=== PATIENT | female | born 2000 | race Caucasian/White ===

== ENCOUNTER 2025-03-15 19:27 | Emergency (ER) | payer OTHER, SELFPAY ==
[2025-03-15 19:44] VITALS: BP 102/70; PULSE 86; TEMP 36.4; O2SAT 100; BMI 20.7
--- NOTE | 2025-03-15 20:42 | CT_ITS ---
The [address] [address] Patient Name: TORIN AUGUSTE MRN: [id number] date: 2000 Sex: F Assigned Patient Location: ED.MAIN Current Patient Location: Accession/Order Number: [id number] Exam Date: 03/15/2025 22:13 Report Date: 03/15/2025 22:30 At the request of: IVAN MCCORD MD Procedure: CT abdomen pelvis w con CT Abdomen and Pelvis withcontrast TECHNIQUE: Axial imaging with 2-D reconstruction.100 cc of Omnipaque 300. The CT exam was performed using one or more the following dose reduction techniques: Automated exposure control, adjustment of the MA and/or Kv according to patient size, or use of the iterative reconstruction technique. COMPARISON: None History: Acute pelvic pain LIMITATIONS: None LOWER THORAX Unremarkable LIVER: Small left hepatic cyst. GALLBLADDER: No gallbladder abnormality identified. BILE DUCTS: No dilatation SPLEEN: Unremarkable PANCREAS: Unremarkable ADRENAL GLANDS: Unremarkable KIDNEYS:Unremarkable AORTA: No abdominal aortic aneurysm identified. RETROPERITONEUM: No significant retroperitoneal abnormalities identified. MESENTERY:Unremarkable STOMACH:Unremarkable SMALL BOWEL: The small bowel loops are nondistended. APPENDIX: The appendix is normal. COLON: Unremarkable URINARY BLADDER: Urinary bladder is unremarkable. REPRODUCTIVE SYSTEM: Anteverted uterus. No adnexal mass. PNEUMOPERITONEUM: None PERITONEAL FLUID:None BONY STRUCTURES: Unremarkable ABDOMINAL WALL: Unremarkable CT/CT abdomen pelvis w con IMPRESSION: No acute findings. Anteverted uterus. Impression dictated by: Ruslan Mcrae M.D. 03/15/2025 10:30 PM Dictation Location: [employer] Electronically authenticated by: [id number] Y Date: 03/15/2025 22:30
--- NOTE | 2025-03-15 20:49 | ED.SKABFB1 ---
HPI - Skin/Abscess/Foreign Bdy General Chief complaint: Urogenital-Female Stated complaint: NAUSEOUS/ PROBLEM IN VAGINAL AREA Time Seen by Provider: 03/15/25 19:32 Source: family Mode of arrival: walk-in History of Present Illness HPI narrative: This 24-year-old female is brought to the emergency department by her and mother. For the past 1 to 2 days the patient has been complaining of pain in her vaginal area. She states that she now cannot have a bowel movement. She is passing gas to a certain extent. She has scheduled an appointment with an [employer] [employer] but earlier today had sudden onset of a severe headache and abdominal pain. They state that she had a fever at home. She is afebrile here. She is nauseated but has not vomited in the emergency department. She has had 2 vaginal deliveries. She denies any urinary symptoms. She does not have any flank pain. She states that despite eating normally she has gone from a size medium to an extra small over the past 3 to 4 months. Related Data Allergies Allergy/AdvReac Type Severity Reaction Status Date / Time No Known Drug Allergies Allergy Verified 03/15/25 19:44 Review of Systems ROS Status of ROS 10 or more systems reviewed and unremarkable except as noted in history and below PFSH PFSH Social History Little interest or pleasure in doing things: not at all Feeling down, depressed, or hopeless: not at all Exam Narrative Exam Narrative: Vital signs and Nursing Notes reviewed: Patient is afebrile with normal pulse, blood pressure is soft at 102/70, she is not hypoxic with pulse ox of 100% on room air General: Awake, alert, oriented, nontoxic but uncomfortable appearing female lying on her left side in a position, no respiratory distress HEENT: Normocephalic atraumatic, mucous membranes are moist and pink, eyes are clear, normal conjunctiva, vision is grossly intact Neck: Supple, no meningeal signs, no anterior or posterior cervical lymphadenopathy Chest: Lungs are clear to auscultation with good air entry, there is no wheezing rhonchi or rales appreciated no accessory muscle use, patient is speaking in complete sentences-no chest wall tenderness to palpation CVS: Regular rate and rhythm S1-S2, no murmurs rubs or gallops, pulses are brisk and equal bilaterally ABD: Soft, nondistended, nontender, no rebound guarding or rigidity, bowel sounds are normal, no pulsatile masses appreciated : External visualization of the vagina and rectum appears normal-speculum exam performed with nurse irrigation laborer, there is tenderness at the anterior portion of the vagina with no appreciable cyst, mass or other notable abnormality, small amount of clear to white discharge noted, rectal exam also performed, it was tender without any appreciable masses. There was no appreciable mass between the rectum and the vagina. No hemorrhoids noted. Extremities: Moving all extremities, no lower extremity tenderness or swelling noted, negative Homans' sign, pulses are brisk and equal bilaterally Skin: Normal in appearance without rash,pallor, petechiae or purpura Neuro: No focal deficits Constitutional Vital Signs, click to edit/add: Last Vital Signs Temp 97.5 F L 03/15/25 19:44 Pulse 86 03/15/25 19:44 Resp 18 03/15/25 19:44 BP 102/70 03/15/25 19:44 Pulse Ox 100 03/15/25 19:44 O2 Del Method Room Air 03/15/25 19:44 Course Vital Signs Vital signs: Vital Signs Temperature 97.5 F L 03/15/25 19:44 Pulse Rate 86 03/15/25 19:44 Respiratory Rate 18 03/15/25 19:44 Blood Pressure 102/70 03/15/25 19:44 Pulse Oximetry 100 03/15/25 19:44 Oxygen Delivery Method Room Air 03/15/25 19:44 Temperature 97.5 F L 03/15/25 19:44 Pulse Rate 86 03/15/25 19:44 Respiratory Rate 18 03/15/25 19:44 Blood Pressure 102/70 03/15/25 19:44 Pulse Oximetry 100 03/15/25 19:44 Oxygen Delivery Method Room Air 03/15/25 19:44 MDM - Skin/Abscess/Foreign Bdy MDM Narrative Medical decision making narrative: This 24-year-old female presents for evaluation of lower abdominal/rectal/pelvic pain for the past 1 to 2 weeks but has been getting increasingly more severe. Patient states that she recently had her period and had to assist herself to bleed because there was something in the way like a cyst in her vagina. She also complains of weight loss and inability to have a bowel movement. She has scheduled to see outpatient [facility] [employer] in the near future but today the pain became more severe. She states she had a fever and developed a headache. Upon arrival she was lying in a position on her left side. Her vital signs are stable. She was tender in her lower abdomen. A pelvic and rectal exam were performed by myself with a nurse as irrigation laborer and I did not find any acute abnormalities. There was a small amount of clear to white discharge that appeared physiologic. The patient states she does not have any concerns for STDs. Her test was normal. An IV was placed and she was medicated with IV morphine, Zofran and fluids as well as Toradol for her headache. On reevaluation she is feeling better. She has a normal white count and stable hemoglobin. Electrolytes are normal. An ultrasound of the pelvis as well as a CT scan of the abdomen pelvis was ordered to rule out acute abnormalities. There was no acute abnormalities noticed on the ultrasound or the CT scan. The results of the studies were discussed with the patient and her mother then admits to me that she had been seen at [facility] multiple times for the same pelvic pain and they could never find anything wrong with her. She came here because they thought we would be more thorough. I explained to her that I have done was much of a workup as I have the capacity to do at this time. Despite her being adamant that she does not have any concerns for STDs she was empirically given 250 mg of IM Rocephin, 1 g of p.o. Zithromax and will be discharged home with a 14-day course of doxycycline to empirically treat for PID. I explained to her that she may have endometriosis which is not something that could be necessarily seen on her ultrasound or CT scan and would be better evaluated by an [employer]. Patient and mother verbalized understanding. She will be discharged home with a prescription for Zofran, ibuprofen and doxycycline. Lab Data Attestation: I reviewed the patient's lab results. Labs: Lab Results 03/15/25 Range/Units 20:50 WBC 10.0 (4.0-11.0) 10^3/uL RBC 4.96 (4.20-5.40) 10^6/uL Hgb 14.5 (12.0-16.0) g/dL Hct 41.9 (36.0-48.0) % MCV 84.5 (81.0-99.0) fL MCH 29.2 (26.7-34.0) pg MCHC 34.6 (29.9-35.2) g/dL RDW 12.0 (11.0-15.0) % Plt Count 184 (150-450) 10^3/uL MPV 11.5 (9.5-13.5) fL Neut % (Auto) 75.8 H (43.0-75.0) % Lymph % (Auto) 16.2 L (20.5-60.0) % [place] % (Auto) 7.1 (1.7-12.0) % Eos % (Auto) 0.1 L (0.9-7.0) % Baso % (Auto) 0.4 (0.2-2.0) % Neut # (Auto) 7.6 H (1.4-6.5) 10^3/uL Lymph # (Auto) 1.6 (1.2-3.8) 10^3/uL [place] # (Auto) 0.7 (0.3-0.8) 10^3/uL Eos # (Auto) 0.0 (0.0-0.7) 10^3/uL Baso # (Auto) 0.0 (0.0-0.1) 10^3/uL Abs Immat Gran (auto) 0.04 H (0.00-0.03) 10^3/uL Imm/Tot Granulo (auto) 0.4 (0.0-0.5) % Sodium 142 (136-145) mmol/L Potassium 3.8 (3.5-5.1) mmol/L Chloride 109 H (98-107) mmol/L Carbon Dioxide 23.7 (21.0-32.0) mmol/L Anion Gap 13.1 BUN 11.0 (7.0-18.0) mg/dL Creatinine 0.84 (0.55-1.02) mg/dL Est GFR ( Amer) >60 (>=60 mL/min/1.73m^2) Est GFR (Non-Af Amer) >60 (>=60 mL/min/1.73m^2) BUN/Creatinine Ratio 13.1 Glucose 95 (74-106) mg/dL Lactate 1.8 (0.4-2.0) mmol/L Calcium 9.3 (8.5-10.1) mg/dL Total Bilirubin 0.7 (0.2-1.0) mg/dL AST 16 (15-37) U/L ALT 22 (14-59) U/L Alkaline Phosphatase 56 (46-116) U/L Total Protein 7.6 (6.4-8.2) g/dL Albumin 4.5 (3.4-5.0) g/dL Globulin 3.1 g/dL Albumin/Globulin Ratio 1.5 Serum HCG, Qual Negative (NEGATIVE) Imaging Data CT scan - abdomen: Radiologist's impression: ITS Impressions Abdomen/Pelvis CT 03/15/25 20:42 IMPRESSION: No acute findings. Anteverted uterus. Impression dictated by: Ruslan Mcrae M.D. 03/15/2025 10:30 PM Dictation Location: [employer] Electronically authenticated by: [id number] Y Date: 03/15/2025 22:30 Transvaginal US 03/15/25 21:10 IMPRESSION: Unremarkable transabdominal and transvaginal pelvic ultrasound. Anteverted uterus. No adnexal mass. Trace free fluid Impression dictated by: Ruslan Mcrae M.D. 03/15/2025 10:29 PM Dictation Location: [employer] Electronically authenticated by: [id number] Y Date: 03/15/2025 22:29 Discharge Plan Discharge Chief Complaint: Urogenital-Female Clinical Impression: Pelvic pain Patient Disposition: Home, Self-Care Time of Disposition Decision: 23:01 Condition: Good Print Language: Bengali Instructions: Pelvic Pain in Women (ED), Pelvic Pain (ED) Referrals: Physician,Non-Staff, MD [Primary Care Provider] - 1 week
[2025-03-15] MEDS: MORPHINE SULFATE 4 MG/ML VIAL IV (21:04)
[2025-03-15] MEDS: ACETAMINOPHEN 325 MG TABLET 650 MG PO (21:10)
--- NOTE | 2025-03-15 21:10 | US_ITS ---
The [place] [id number] Patient Name: TROIN AUGUSTE MRN: [id number] date: 2000 Sex: F Assigned Patient Location: ER Current Patient Location: ER Accession/Order Number: [id number] Exam Date: 03/15/2025 21:35 Report Date: 03/15/2025 22:29 At the request of: IVAN MCCORD MD Procedure: US pelvis w/ transvaginal TRANSABDOMINAL AND TRANSVAGINAL PELVIC ULTRASOUND HISTORY: Pelvic pain for 2 weeks FINDINGS: The uterus measures 10.5 x 2.8 x 5.0 cm. There is anteverted. No uterine lesion identified. The endometrium has a total combined thickness of 7mm. The RIGHT ovary measures 3.9 x 1.7 x 2.7 cm. LEFT ovary measures 3.8 x 1.4 x 1.5 cm. Prominent left adnexal vessels Bilateral ovarian blood flow identified. Trace free fluid identified. There is no adnexal mass identified. US/US pelvis w/ transvaginal IMPRESSION: Unremarkable transabdominal and transvaginal pelvic ultrasound. Anteverted uterus. No adnexal mass. Trace free fluid Impression dictated by: Ruslan Mcrae M.D. 03/15/2025 10:29 PM Dictation Location: [place] [address] Electronically authenticated by: [id number] Y Date: 03/15/2025 22:29
[2025-03-15 21:29] LABS: Hematocrit 41.9 % (36.0-48.0); Hemoglobin 14.5 g/dL (12.0-16.0); Immature Granulocytes Abs Auto 0.04 10^3/uL (0.00-0.03); Immature Granulocytes Pct Auto 0.4 % (0.0-0.5); Lymphocytes Absolute Auto 1.6 10^3/uL (1.2-3.8); Mean Corpuscular HGB Conc 34.6 g/dL (29.9-35.2); Mean Corpuscular Hemoglobin 29.2 pg (26.7-34.0); Mean Corpuscular Volume 84.5 fL (81.0-99.0); Platelet Count 184 10^3/uL (150-450); Red Blood Count 4.96 10^6/uL (4.20-5.40); White Blood Count 10.0 10^3/uL (4.0-11.0)
[2025-03-15 21:42] LABS: Alanine Aminotransferase 22 U/L (14-59); Albumin Globulin Ratio 1.5; Albumin Level 4.5 g/dL (3.4-5.0); Alkaline Phosphatase 56 U/L (46-116); Anion Gap 13.1; Aspartate Amino Transferase 16 U/L (15-37); Blood Urea Nitrogen 11.0 mg/dL (7.0-18.0); Calcium 9.3 mg/dL (8.5-10.1); Carbon Dioxide 23.7 mmol/L (21.0-32.0); Chloride 109 mmol/L (98-107); Estimated GFR (African America >60 (>=60 mL/min/1.73m^2); Estimated GFR (Non-African Ame >60 (>=60 mL/min/1.73m^2); Globulin 3.1 g/dL; Glucose 95 mg/dL (74-106); Potassium 3.8 mmol/L (3.5-5.1); Sodium 142 mmol/L (136-145); Total Protein 7.6 g/dL (6.4-8.2)
[2025-03-15 21:46] LABS: Lactate/Lactic Acid 1.8 mmol/L (0.4-2.0)
[2025-03-15] MEDS: KETOROLAC TROMETHAMINE 30 MG/ML VIAL IVP (22:41)
[2025-03-15] MEDS: LIDOCAINE HCL IM (23:10)
[2025-03-15] MEDS: CEFTRIAXONE 250 MG IM (23:10)
[2025-03-15] MEDS: AZITHROMYCIN 250 MG TABLET 1000 MG PO (23:10)
[2025-03-15 23:27] VITALS: BP 118/67; PULSE 80; O2SAT 98
== END 2025-03-15 23:31 | disposition home or self-care (01) ==
PROVIDERS: Emergency Provider Emergency Medicine
DX: R10.2 Pelvic and perineal pain (principal)
CPT/HCPCS: 36415; 74177; 76830; 76856; 80053; 81001; 83605; 84703; 85025; 87040; 96372; 96374; 96375; 99285; J0696; J1885; J2270; J2405; Q9967